=== PATIENT | male | born 2000 | race African-American/Black ===

== ENCOUNTER 2021-10-11 13:22 | Emergency (ER) | payer MEDICAID, OTHER ==
[~2021-10-11] VITALS: Ht 190.5 cm; Wt 126.1 kg
[2021-10-11 16:01] VITALS: BP 134/85
== END 2021-10-11 17:30 | disposition home or self-care (01) ==
LOC: EDBD 13:22 → ER 13:22
DX: H53.8 Other visual disturbances (principal)
CPT/HCPCS: 70450; 82962

== ENCOUNTER 2022-07-29 09:58 | Emergency (ER) | payer MEDICAID ==
[~2022-07-29] VITALS: Ht 182.9 cm; Wt 117.3 kg
[2022-07-29 13:04] VITALS: BP 137/74
[2022-07-29 14:03] LABS: Urine Bacteria NONE SEEN /hpf (None Seen); Urine Blood Negative /uL (Negative); Urine Specific Gravity 1.024 (1.001-1.035); Urine WBC <1 /hpf (0 - 3)
[2022-07-29] MEDS ORDERED: IBUP800T26 PO (14:34)
== END 2022-07-29 14:46 | disposition home or self-care (01) ==
LOC: ER 09:58
DX: N43.3 Hydrocele, unspecified (principal)
CPT/HCPCS: 76870; 81001

== ENCOUNTER 2022-09-14 15:15 | Emergency (ER) | payer MEDICAID ==
[~2022-09-14] VITALS: Ht 190.5 cm; Wt 114.1 kg
[~2022-09-14 15:15] MED LIST: IBUP800T26 PO
[2022-09-14 16:46] VITALS: BP 124/74
== END 2022-09-14 17:52 | disposition home or self-care (01) ==
LOC: ER 15:15
DX: R22.1 Localized swelling, mass and lump, neck (principal); Z79.1 Long term (current) use of non-steroidal anti-inflammatories (NSAID)
CPT/HCPCS: 70360

== ENCOUNTER 2023-01-11 06:18 | Inpatient (IN) | payer MEDICAID ==
[~2023-01-11] VITALS: Ht 190.5 cm; Wt 112.8 kg
[~2023-01-11 06:18] MED LIST changes: +IBUP-1455 PO; -IBUP800T26 PO
[2023-01-11] MEDS ORDERED: ASPirin 325 MG TAB PO ONE (06:30)
[2023-01-11 07:03] LABS: Basophils # (auto) 0.1 10 ^3/uL (0-0.2); Lymphocytes # (auto) 1.9 10 ^3/uL (0.4-5.4); Monocytes # (auto) 0.6 10 ^3/uL (0-1.3); Neutrophils # (auto) 5.5 10 ^3/uL (1.6-8.6)
[2023-01-11 07:04] LABS: Albumin 3.9 g/dL (3.4-5.0); Potassium 4.1 mmol/L (3.5-5.1)
[2023-01-11 07:06] LABS: Basophils % (auto) 0.9 % (0.0-2.0); Bilirubin, Total 0.5 mg/dL (0.2-1.0); Eosinophils # (auto) 0 10 ^3/uL (0-0.8); Eosinophils % (auto) 0.5 % (0.0-7.0); Hematocrit 45.3 % (41.0-53.0); Lymphocytes % (auto) 23.8 % (10.0-50.0); Mean Corpuscular Hemoglobin 24.6 pg (28.0-32.0); Mean Corpuscular Volume 74.5 fL (80.0-100.0); Monocytes % (auto) 7.8 % (0.0-12.0); Nucleated Red Blood Cells % 0.3 %; Red Blood Cells 6.08 10^6/uL (4.5-5.90); Red Cell Distribution Width 14.4 % (11.8-14.3); Total Protein 7.3 g/dL (6.4-8.2); White Blood Cell 8.2 10^3/uL (4.4-10.8)
[2023-01-11] MEDS ORDERED: IBUPROFEN 600 MG TAB PO ONE (11:00)
[2023-01-11] MEDS ORDERED: MORPHINE SULFATE INJ 2 MG/ml SYRG IV PRN (14:45)
[2023-01-11] MEDS ORDERED: NITROGLYCERIN 0.4 MG SL TAB SL PRN (14:45)
[2023-01-11] MEDS ORDERED: FERR325T20 PO (14:55)
[2023-01-11] MEDS ORDERED: SIMV20TA20 PO (14:55)
[2023-01-11 21:46] LABS: Alcohol, Urine < 3.0 mg/dL (0-10); Amphetamine Screen, Urine NEGATIVE (NEGATIVE); Barbiturate Scree,Urine NEGATIVE (NEGATIVE); Benzodiazephine Screen, Urine NEGATIVE (NEGATIVE); Cannabinoid Screen, Urine NEGATIVE (NEGATIVE); Cocaine Screen, Urine NEGATIVE (NEGATIVE); Opiate Scree,Urine NEGATIVE (NEGATIVE); Phencyclidine Screen, Urine NEGATIVE (NEGATIVE)
[2023-01-11] MEDS ORDERED: ATORVASTATIN 20 MG TAB PO SCH (22:00)
[2023-01-11] MEDS: ASPirin 325 MG TAB PO SCH (22:21)
[2023-01-11] MEDS: COLCHICINE 0.6 MG CAP PO SCH (22:22)
[2023-01-11 23:01] VITALS: BP 124/79
[2023-01-12 04:58] VITALS: BP 96/60
[2023-01-12 06:25] LABS: Basophils # (auto) 0 10 ^3/uL (0-0.2); Basophils % (auto) 0.6 % (0.0-2.0); Eosinophils # (auto) 0.1 10 ^3/uL (0-0.8); Hematocrit 46.2 % (41.0-53.0); Lymphocytes # (auto) 1.6 10 ^3/uL (0.4-5.4); Lymphocytes % (auto) 22.7 % (10.0-50.0); Mean Corpuscular Hemoglobin 24.7 pg (28.0-32.0); Mean Corpuscular Hgb Conc. 32.5 g/dL (32.0-36.0); Monocytes # (auto) 0.6 10 ^3/uL (0-1.3); Monocytes % (auto) 8.5 % (0.0-12.0); Neutrophils # (auto) 4.7 10 ^3/uL (1.6-8.6); Neutrophils % (auto) 67.2 % (37.0-80.0); Nucleated Red Blood Cells % 0.3 %; Red Blood Cells 6.08 10^6/uL (4.5-5.90); Red Cell Distribution Width 14.4 % (11.8-14.3); White Blood Cell 6.9 10^3/uL (4.4-10.8)
[2023-01-12 06:47] LABS: Potassium 4.6 mmol/L (3.5-5.1)
[2023-01-12 06:53] LABS: BUN/Creatinine Ratio 13.5 (10.0-20.0); Bilirubin, Total 0.6 mg/dL (0.2-1.0); Calcium 8.8 mg/dL (8.5-10.1); Total Protein 7.4 g/dL (6.4-8.2)
[2023-01-12 09:00] VITALS: BP 122/67
[2023-01-12] MEDS: PANTOPRAZOLE 40 MG TAB PO SCH (09:42)
[2023-01-12] MEDS: FERROUS SULFATE 325mg EC TAB PO SCH (09:42)
[2023-01-12] MEDS: ASPirin 325 MG TAB PO SCH (09:42)
[2023-01-12] MEDS: COLCHICINE 0.6 MG CAP PO SCH ×2 (09:42→22:00)
[2023-01-12] MEDS ORDERED: ADENOSINE 90 MG in GIVE UN-DILUTED 0 ML IV STA (12:07)
[2023-01-12 12:12] VITALS: BP 127/64
[2023-01-12 13:08] VITALS: BP 121/76
[2023-01-12 17:00] VITALS: BP 116/77
[2023-01-12 22:00] VITALS: BP 112/67
[2023-01-12] MEDS ORDERED: ATORVASTATIN 20 MG TAB PO SCH (22:00)
[2023-01-13 05:00] VITALS: BP 118/69
[2023-01-13 09:08] VITALS: BP 142/72
[2023-01-13] MEDS: FERROUS SULFATE 325mg EC TAB PO SCH (09:12)
[2023-01-13] MEDS: COLCHICINE 0.6 MG CAP PO SCH (09:12)
[2023-01-13] MEDS: PANTOPRAZOLE 40 MG TAB PO SCH (09:12)
[2023-01-13] MEDS ORDERED: ASPirin 81 mg TAB PO SCH (10:00)
[2023-01-13] MEDS ORDERED: IBUP-1456 PO (10:17)
[2023-01-13 11:25] VITALS: BP 142/72
[2023-01-13 12:49] VITALS: BP 115/68
[2023-01-14 10:46] LABS: Hepatitis C Antibody Negative (Negative)
== END 2023-01-13 14:14 | disposition home or self-care (01) | DRG 207 ==
LOC: ER 06:18 → TELE 14:53 → TELE-WESTW 21:51
PROVIDERS: ADMIT Nurse Practitioner Family; ATTEND Internal Medicine Geriatric Medicine
DX: I30.9 Acute pericarditis, unspecified (principal); E66.9 Obesity, unspecified; E78.5 Hyperlipidemia, unspecified; F41.9 Anxiety disorder, unspecified; J45.909 Unspecified asthma, uncomplicated; Z68.31 Body mass index [BMI] 31.0-31.9, adult; Z83.3 Family history of diabetes mellitus; Z82.49 Family history of ischemic heart disease and other diseases of the circulatory system; Z83.42 Family history of familial hypercholesterolemia
CPT/HCPCS: 36415; 71046; 78452; 80053; 80061; 80307; 82306; 83036; 84443; 84484; 85025; 85379; 86803; 87340; 93005; 93017; 93306; G0378; J0153